=== PATIENT | female | born 1980 | race Two or more races ===

== ENCOUNTER 2021-05-13 13:14 | Emergency (ER) | payer MEDICAID ==
[~2021-05-13] VITALS: Ht 149.9 cm; Wt 72.7 kg
[2021-05-13] MEDS ORDERED: LIDOCAINE 5% TRANSDERMAL PATCH TD ONE (15:00)
[2021-05-13] MEDS ORDERED: KETOROLAC TROMETHAMINE 30 MG/ML VIAL IM ONE (15:00)
[2021-05-13] MEDS ORDERED: LIDO1ADH83 TP (17:13)
[2021-05-13] MEDS ORDERED: IBUP-2070 PO (17:13)
[2021-05-13 17:23] VITALS: BP 130/80
== END 2021-05-13 17:25 | disposition home or self-care (01) ==
LOC: EMS 13:14
DX: S22.42XA Multiple fractures of ribs, left side, initial encounter for closed fracture (principal); X58.XXXA Exposure to other specified factors, initial encounter; Y93.89 Activity, other specified; Y92.89 Other specified places as the place of occurrence of the external cause; Y99.8 Other external cause status
CPT/HCPCS: 71101; 96372; 99283; J1885

== ENCOUNTER 2022-04-20 21:20 | Emergency (ER) | payer MEDICAID ==
[~2022-04-20] VITALS: Ht 149.9 cm; Wt 77.3 kg
[~2022-04-20 21:20] MED LIST: IBUP-1492 PO; LIDO1ADH83 TP
[2022-04-20 21:44] LABS: COVID AG,FIA SOURCE NASAL SWAB
[2022-04-20 22:00] LABS: RAPID GROUP A STREP NEGATIVE (NEGATIVE)
[2022-04-20 22:07] LABS: INFLUENZA TYPE A NEGATIVE FOR TYPE A (NEGATIVE); INFLUENZA TYPE B NEGATIVE FOR TYPE B (NEGATIVE)
[2022-04-21] MEDS ORDERED: BENZ-227 PO (01:10)
[2022-04-21] MEDS ORDERED: BENZ1LOZ77 PO (01:10)
[2022-04-21] MEDS ORDERED: IBUP-1492 PO (01:10)
[2022-04-21 01:33] VITALS: BP 134/88
== END 2022-04-21 01:56 | disposition home or self-care (01) ==
LOC: EMS 21:22
DX: J02.8 Acute pharyngitis due to other specified organisms (principal); R05.9 Cough, unspecified; Z88.8 Allergy status to other drugs, medicaments and biological substances; Z20.822 Contact with and (suspected) exposure to COVID-19
CPT/HCPCS: 71045; 87430; 87804; 93005; 99285